=== PATIENT | female | born 1955 | race Caucasian/White ===

== ENCOUNTER 2019-02-19 09:48 | Day surgery (SDC) | payer BC ==
[2019-02-19] VITALS (7 sets, daily range): BP systolic 111–133; BP diastolic 65–76
[~2019-02-19] VITALS: Ht 162.6 cm; Wt 55.8 kg
--- NOTE | 2019-02-19 11:12 | Anethesia Preoperative Eval ---
Anesthesia Pre-op PMH/ROS General Date of Evaluation: Feb 19, 2019 Time of Evaluation: 11:06 Anesthesiologist: Kraig ASA Score: ASA 2 Mallampati Score Class I : Soft palate, uvula, fauces, pillars visible Class II: Soft palate, uvula, fauces visible Class III: Soft palate, base of uvula visible Class IV: Only hard plate visible Mallampati Classification: Class II Surgeon: Analilia Diagnosis: Abdominal pain Surgical Procedure: Colonoscopy Anesthesia History: none Family History: no anesthesia problems Allergies: Coded Allergies: No Known Allergies (Unverified , 02/19/19) Medications: see eMAR Patient NPO?: Yes Past Medical History Cardiovascular: Reports: HTN - stable on meds; Denies: CAD, RI, valve dz, arrhythmia, other Pulmonary: Denies: asthma, COPD, [place], other Gastrointestinal/Genitourinary: Reports: GERD; Denies: CRI, ESRD, other Neurologic/Psychiatric: Denies: dementia, CVA, depression/anxiety, TIA, other Endocrine: Denies: DM, hypothyroidism, steroids, other HEENT: Denies: cataract (L), cataract (R), glaucoma, MINTO (L), MINTO (R), other Hematology/Immune: Denies: anemia, DVT, bleeding disorder, other Musculoskeletal/Integumentary: Denies: OA, RA, DJD, DDD, edema, other PMH Narrative: as above PSxH Narrative: See H&P Anesthesia Pre-op Phys. Exam Physician Exam Last Vital Signs Date Time Temp Pulse Resp B/P (MAP) Pulse Ox O2 Delivery O2 Flow Rate FiO2 02/19/19 10:43 97.2 60 18 125/68 98 Room Air Constitutional: NAD Neurologic: CN 2-12 intact Cardiovascular: RRR, no M/R/G Respiratory: CTA Gastrointestinal: S/NT/ND, other Airway Exam Mallampati Score: Class II MO: full Neck: flexible ROM: full Teeth: intact Dentures: no upper, no lower Anesthesia Pre-op A/P Risk Assessment & Plan Assessment: ASA 2 Plan: MAC Status Change Before Surgery: Fernando Jensen MD Feb 19, 2019 11:12
[2019-02-19] MEDS ORDERED: Midazolam 2mg/2ml Inj ONE (11:26)
[2019-02-19] MEDS ORDERED: fentaNYL 100 mcg/2 mL IV ONE (11:26)
[2019-02-19] MEDS ORDERED: Propofol 200mg/20ml IV ONE (11:26)
[2019-02-19] MEDS ORDERED: AMLODIPINE BESYL5 MG ORAL (11:27)
[2019-02-19] MEDS ORDERED: COREG CR40 MG ORAL (11:29)
[2019-02-19] MEDS ORDERED: BENICAR40 MG ORAL (11:29)
[2019-02-19] MEDS ORDERED: HYDROCHLOROTHIA25 MG ORAL (11:30)
[2019-02-19] MEDS ORDERED: [UNRECOGNIZED DRUG - OTHER] PO (11:31)
[2019-02-19] MEDS ORDERED: VIT D PO (11:31)
[2019-02-19] MEDS ORDERED: DUAVEE 0.45-201 EACH PO (11:32)
--- NOTE | 2019-02-19 11:32 | Pre-Procedure Note/Attestation ---
Pre-Procedure Note/Attestation Complete Prior to Procedure Planned Procedure: not applicable Procedure Narrative: colonoscopy Indications for Procedure Pre-Operative Diagnosis: screening Attestation I attest that I discussed the nature of the procedure; its benefits; risks and complications; and alternatives (and the risks and benefits of such alternatives ), prior to the procedure, with the patient (or the patient's legal commissary representative). I attest that, if there was a reasonable possibility of needing a blood transfusion, the patient (or the patient's legal commissary representative) was given the [facility] standardized written summary, pursuant to the Dave Canones Blood Safety Act ([place] Health and Safety Code # 1645, as amended). I attest that I re-evaluated the patient just prior to the surgery and that there has been no change in the patient's H&P, except as documented below: Mauricio Billingsley MD Feb 19, 2019 11:32
--- NOTE | 2019-02-19 11:34 | Short Stay Surgery H&P ---
History of Present Illness History of Present Illness Chief Complaint screening colon HPI Lela Monae is a 63 year old female who was admitted on for Abdominal Pain Patient History Allergies: Coded Allergies: No Known Allergies (Unverified , 02/19/19) PAST MEDICAL HISTORY: (1) HTN (hypertension) (2) Skin cancer Medication History Scheduled Amlodipine Besylate* (Amlodipine Besylate*), 5 MG ORAL DAILY, (Reported) Carvedilol Phosphate (Coreg Cr), 40 MG ORAL DAILY, (Reported) Estrogens,Conj/Bazedoxifene (Duavee 0.45-20 mg Tablet), 1 EACH PO DAILY, ( Reported) Hydrochlorothiazide* (Hydrochlorothiazide*), 25 MG ORAL DAILY, (Reported) Olmesartan Medoxomil (Benicar), 40 MG ORAL DAILY, (Reported) [VIT D/Concumin], 500 MG PO DAILY, (Reported) Review of Systems Cardiovascular: Reports: no symptoms Respiratory: Reports: no symptoms Skeletal: Reports: no symptoms Gastrointestinal: Reports: no symptoms Genitourinary: Reports: no symptoms Neurologic: Reports: no symptoms Endocrine: Reports: no symptoms Hematologic: Reports: no symptoms Physical Exam Vital Signs Last Vital Signs Date Time Temp Pulse Resp B/P (MAP) Pulse Ox O2 Delivery O2 Flow Rate FiO2 02/19/19 10:43 97.2 60 18 125/68 98 Room Air Skin: normal HENT: normal Heart: normal Lungs: normal Abdomen: normal Extremities: normal Plan Plan of Care colonoscopy Attestation Are the patient's medical conditions optimized for surgery? Attestation Response: yes Mauricio Billingsley MD Feb 19, 2019 11:34
[2019-02-19] MEDS ORDERED: LR 1000ml 1,000 ML IVLG SCH (11:45)
[2019-02-19] MEDS ORDERED: fentaNYL 100 mcg/2 mL IV PRN (11:45)
--- NOTE | 2019-02-19 11:54 | Endoscopy Procedure Note ---
Endoscopy Procedure Note General Indication for Procedure: screening Procedures Performed: colonoscopy Operative Findings/Diagnosis: one polyp Specimen: yes Pt Tolerated Procedure Well: Yes Estimated Blood Loss: none Anesthesia Anesthesiologist: rafaela Anesthesia: MAC Inserted Devices Implant(s) used?: No Quality Quality of Bowel Preparation: Good Did scope reach the cecum?: Yes Was there any complications?: No GI Core Measures 50 yrs or older w/o bx or poly: No 10yrs. F/U not recommended: Yes If not recommended, why?: Above average risk 10 yrs. F/U needed: Yes 18 years or older w/prev. colo: Yes <3yrs. since last colonoscopy: No Mauricio Billingsley MD Feb 19, 2019 11:54
--- NOTE | 2019-02-19 12:04 | Immediate Post-Op Evaluation ---
Immediate Post-Op Evalulation Immediate Post-Op Evalulation Procedure: Colonoscopy Date of Evaluation: Feb 19, 2019 Time of Evaluation: 12:03 IV Fluids: 500 Blood Products: none Estimated Blood Loss: none Urinary Output: none Blood Pressure Systolic: 112 Blood Pressure Diastolic: 56 Pulse Rate: 58 Respiratory Rate: 20 O2 Sat by Pulse Oximetry: 99 Temperature (Fahrenheit): 97.8 Pain Score (1-10): 1 Nausea: No Vomiting: No Complications none Patient Status: awake, patent, none Hydration Status: adequate Fernando Cornell MD Feb 19, 2019 12:04
[2019-02-19] MEDS ORDERED: RANITIDINE HCL150 MG ORAL (18:23)
--- NOTE | 2019-02-19 19:15 | Procedure Note ---
DATE OF PROCEDURE: 02/19/2019 SURGEON: Mauricio Billingsley M.D. ANESTHESIA: Per Dr. Cornell. PROCEDURE: Colonoscopy. REASON FOR PROCEDURE: The procedure, risks, benefits, and possible consequences, including hemorrhage, aspiration, perforation and infection, and alternative treatments, were explained to the patient/legal guardian by Dr. Mauricio Billingsley and the patient/legal guardian understood and accepted these risks. INDICATIONS: Screening colonoscopy. INSTRUMENT: Olympus adult flexible colonoscope. DESCRIPTION OF PROCEDURE: After informed consent was obtained and the patient was adequately sedated, first rectal exam was performed, which was positive for internal hemorrhoids. Then, the scope was advanced from rectum into the cecum documented by appendiceal orifice, ileocecal valve, and right upper quadrant palpation. Quality of prep was very good. The patient had 1 colonic polyp in the sigmoid measured roughly about 4 mm removed with cold biopsy forceps technique. Otherwise, the rest of the colonoscopic examination was within normal limits. Retroflexion of rectum showed evidence of few medium-sized nonbleeding internal hemorrhoids. SUMMARY OF FINDINGS: 1. One colonic polyp removed, see above for details. 2. Internal hemorrhoids. RECOMMENDATIONS: 1. Follow up pathology. 2. Repeat colonoscopy in 5 years. Mauricio Billingsley M.D. DR: NAA JOB#: [id number] CC:
== END 2019-02-19 13:00 | disposition home or self-care (01) ==
LOC: GAS 09:48
DX: Z12.11 Encounter for screening for malignant neoplasm of colon (principal); K63.5 Polyp of colon; K64.8 Other hemorrhoids; I10 Essential (primary) hypertension; Z85.828 Personal history of other malignant neoplasm of skin; D12.5 Benign neoplasm of sigmoid colon
CPT/HCPCS: 45380; J2250; J2704; J3010; 94003; 94150

== ENCOUNTER 2019-02-19 15:13 | Emergency (ER) | payer BC ==
[~2019-02-19] VITALS: Ht 162.6 cm; Wt 55.8 kg
[~2019-02-19 15:13] MED LIST: AMLODIPINE BESYL5 MG ORAL; BENICAR40 MG ORAL; COREG CR40 MG ORAL; DUAVEE 0.45-201 EACH PO; HYDROCHLOROTHIA25 MG ORAL; VIT D PO; [UNRECOGNIZED DRUG - OTHER] PO
--- NOTE | 2019-02-19 15:22 | NUR ---
ED Nurse Note: Patient walked in to ED. Patient reports that she had colonoscopy today around [address] Billingsley. On the way home, patient had epigastric pain, similar to the one that she had when she had small bowel obstruction [address] Billingsley told them to come to ED for check up. patient also c/o nausea.
[2019-02-19] MEDS ORDERED: Morphine Sulfate 4mg/ml Inj (IV USE ONLY) IVP ONE ×2 (15:45→18:30)
[2019-02-19] MEDS ORDERED: Isovue-300 100ml vial INJ PRN (16:00)
[2019-02-19 16:13] LABS: APPEARANCE,URINE CLEAR; BILIRUBIN, URINE NEGATIVE (NEGATIVE); COLOR,URINE PALE YELLOW; GLUCOSE, URINE (UA) NEGATIVE (NEGATIVE); KETONES,URINE 2+ (NEGATIVE); LEUKOCYTE ESTERASE ,URINE NEGATIVE (NEGATIVE); NITRITE,URINE NEGATIVE (NEGATIVE); PH,URINE 7 (4.5-8.0); PROTEIN,URINE NEGATIVE (NEGATIVE); UROBILINOGEN,URINE NORMAL MG/DL (0.0-1.0)
[2019-02-19 16:19] LABS: BASOPHILS % (AUTO) 0.3 % (0.0-2.0); EOSINOPHILS % (AUTO) 0.2 % (0.0-3.0); MEAN CORPUSCULAR VOLUME 84 FL (80-99); MONOCYTES % (AUTO) 4.3 % (1.0-10.0); NEUTROPHILS % (AUTO) 81.2 % (45.0-75.0); PLATELET COUNT 210 K/UL (150-450); RED BLOOD COUNT 4.75 M/UL (4.20-5.40); RED CELL DISTRIBUTION WIDTH 16.4 % (11.6-14.8); WHITE BLOOD COUNT 7.1 K/UL (4.8-10.8)
[2019-02-19 16:29] LABS: INR 1.1 (0.9-1.1)
[2019-02-19 16:36] LABS: ANION GAP 15 mmol/L (5-15); BLOOD UREA NITROGEN 13 mg/dL (7-18); CALCIUM 9.4 MG/DL (8.5-10.1); CARBON DIOXIDE 26 MMOL/L (21-32); CHLORIDE 104 MMOL/L (98-107); CREATININE 0.7 MG/DL (0.55-1.30); POTASSIUM 2.9 MMOL/L (3.5-5.1); SODIUM 145 MMOL/L (136-145)
[2019-02-19 16:40] LABS: ALANINE AMINOTRANSFERASE 27 U/L (12-78); ALBUMIN/GLOBULIN RATIO 1.1 (1.0-2.7); ALKALINE PHOSPHATASE 43 U/L (46-116); ASPARTATE AMINO TRANSFERASE 27 U/L (15-37); BILIRUBIN,TOTAL 0.4 MG/DL (0.2-1.0)
--- NOTE | 2019-02-19 17:45 | NUR ---
ED Nurse Note: patient came back from CT awaiting for result patient stable in bed, comfortably resting in bed
[2019-02-19 17:50] VITALS: BP 145/85
--- NOTE | 2019-02-19 17:54 | Diagnostic Imaging Report ---
Clinical Indication: Abdominal pain, status post colonoscopy, nausea Technique: No oral contrast utilized, per emergency room physician request IV administration nonionic contrast. Venous phase spiral acquisition obtained through the abdomen and pelvis. Multiplanar reconstructions were generated. Total dose length product 607.77 mGycm. CTDIvol(s) 12.77 mGy. Dose reduction achieved using automated exposure control Comparison: none Findings: The appendix is normal. There are a few colonic diverticula. No evidence of diverticulitis. No small bowel distention. No free or loculated intraperitoneal gas or fluid. There is generalized nonspecific haziness of the mesenteric root and pelvic fat. No free intraperitoneal gas is evident. There is trace free fluid adjacent to the tip of the right hepatic lobe. The liver, gallbladder, bile ducts, pancreas, spleen, adrenals are unremarkable. The kidneys demonstrate subcentimeter low-attenuation lesions which are too small to characterize. A punctate calcification is seen in a left lower pole calyx. No ureteral calculi, hydronephrosis, or hydroureter demonstrated. The bladder is unremarkable. The uterus and adnexal structures are unremarkable. The included lung bases demonstrate minimal dependent atelectatic changes. There are mild degenerative changes of the lumbar spine noted. Impression: No evidence of bowel perforation or other significant post colonoscopy complication Trace free intraperitoneal fluid adjacent to the tip of the right hepatic lobe. Nonspecific slight increased attenuation of the mesenteric fat, significance/etiology uncertain. Nonobstructive punctate left intrarenal calculus Bilateral renal subcentimeter low-attenuation lesions, too small to characterize, most likely benign simple cortical cysts. No further follow-up necessary. Minimal degenerative spondylosis change Findings discussed by phone with Dr. Bazan in the emergency room at the time of interpretation The CT scanner at [facility] is accredited by the [employer] and the scans are performed using protocols designed to limit radiation exposure to as low as reasonably achievable to attain images of sufficient resolution adequate for diagnostic evaluation.
[2019-02-19] MEDS ORDERED: RANITIDINE HCL150 MG ORAL (18:23)
--- NOTE | 2019-02-19 18:35 | NUR ---
ED Nurse Note: verified with Dr. Leon that additional dose of pepcid does not need to be given.
--- NOTE | 2019-02-19 18:36 | NUR ---
ED Nurse Note: Dr. Leon ok to discharge the patient after giving morphine 4mg dose by the bedside he is going to drive. Patient stated she won't drive. she understands of be safe patient states she is a retired nurse.
[2019-02-19 18:50] VITALS: BP 145/85
--- NOTE | 2019-02-19 18:50 | NUR ---
ER DISCHARGE NOTE: Patient is cleared to be discharged per ERMD, pt is aox4, on room air, with stable vital signs. pt was given dc and prescription instructions, pt was able to verbalize understanding, pt id band and iv site removed without complications. pt is able to ambulate with steady gait. pt took all belongings.
--- NOTE | 2019-02-19 22:45 | Emergency Room Report ---
History of Present Illness General Chief Complaint: Abdominal Pain Source: Patient Present Illness HPI 63-year-old female presents ED for evaluation. Patient complaining of epigastric pain which started today. Sharp, 8 out of 10, nonradiating. Denies nausea or vomiting. States symptoms started shortly after having colonoscopy today. Performed by Dr. Billingsley referred patient to ED. Patient has history of bowel obstruction. Denies nausea or vomiting. States she is passing flatus. Denies fevers or chills. No other aggravating relieving factors. Denies any other associated symptoms Allergies: Coded Allergies: No Known Allergies (Unverified , 02/19/19) Patient History Past Medical History: HTN Past Surgical History: other - SBO Pertinent Family History: none Social History: Denies: smoking, alcohol use, drug use Now: No Immunizations: UTD Reviewed Nursing Documentation: PMH: Agreed; PSxH: Agreed Nursing Documentation-PMH Past Medical History: No History, Except For Hx Hypertension: Yes Hx Cancer: Yes - skin cancer Hx Gastrointestinal Problems: Yes Hx Neurological Problems: No Review of Systems All Other Systems: negative except mentioned in HPI Physical Exam Vital Signs Date Time Temp Pulse Resp B/P (MAP) Pulse Ox O2 Delivery O2 Flow Rate FiO2 02/19/19 15:17 98.1 61 14 122/71 94 Room Air Sp02 EP Interpretation: reviewed, normal General Appearance: no apparent distress, alert, GCS 15, non-toxic Head: normocephalic, atraumatic Eyes: bilateral eye normal inspection, bilateral eye PERRL ENT: hearing grossly normal, normal pharynx, no angioedema, normal voice Neck: full range of motion, supple/symm/no masses Respiratory: chest non-tender, lungs clear, normal breath sounds, speaking full sentences Cardiovascular #1: regular rate, rhythm, no edema Cardiovascular #2: 2+ carotid (R), 2+ carotid (L), 2+ radial (R), 2+ radial (L) , 2+ dorsalis pedis (R), 2+ dorsalis pedis (L) Gastrointestinal: normal bowel sounds, soft, non-distended, no guarding, no rebound, tenderness - epigastric Rectal: deferred Genitourinary: normal inspection, no CVA tenderness Musculoskeletal: back normal, gait/station normal, normal range of motion, non- tender Neurologic: alert, oriented x3, responsive, motor strength/tone normal, sensory intact, speech normal Psychiatric: judgement/insight normal, memory normal, mood/affect normal, no suicidal/homicidal ideation Reflexes: 3+ bicep (R), 3+ bicep (L), 3+ tricep (R), 3+ tricep (L), 3+ knee (R) , 3+ knee (L) Skin: normal color, no rash, warm/dry, well hydrated Lymphatic: no adenopathy Medical Decision Making Diagnostic Impression: Primary Impression: Abdominal pain Qualified Codes: R10.13 - Epigastric pain ER Course Hospital Course 63-year-old female presents ED with abdominal pain status post colonoscopy Differential diagnosis includes- bowel perforation, small bowel obstruction, gastritis, Clinical course Patient placed on stretcher. After initial history and physical I ordered labs , IV fluids, pain medications and CT scan Labs - no leukocytosis, K 2.9, LFTs normal CT scan shows no evidence of bowel perforation or small bowel obstruction. Otherwise incidental findings noted on final report K repleted On reassessment pain improved. Discussed findings with patient and with Dr. Billingsley. Safe for discharge or close outpatient follow-up I feel this is a highly complex case requiring extensive working including EKG/ Rhythm strip, Xray/CT/US, Blood/urine lab work, repeat exams while in ED, and administration of strong opiates/narcotics for pain control, admission to hospital or close patient follow up. Diagnosis - abdominal pain Stable and discharged to home. Followup with PMD/GI. Return to ED if symptoms recur or worsen Labs Test 02/19/19 15:36 02/19/19 15:53 Urine Color Pale yellow Urine Appearance Clear Urine pH 7 (4.5-8.0) Urine Specific [place] 1.010 (1.005-1.035) Urine Protein Negative (NEGATIVE) Urine Glucose (UA) Negative (NEGATIVE) Urine Ketones 2+ (NEGATIVE) Urine Blood Negative (NEGATIVE) Urine Nitrite Negative (NEGATIVE) Urine Bilirubin Negative (NEGATIVE) Urine Urobilinogen Normal MG/DL (0.0-1.0) Urine Leukocyte Esterase Negative (NEGATIVE) White Blood Count 7.1 K/UL (4.8-10.8) Red Blood Count 4.75 M/UL (4.20-5.40) Hemoglobin 13.0 G/DL (12.0-16.0) Hematocrit 40.0 % (37.0-47.0) Mean Corpuscular Volume 84 FL (80-99) Mean Corpuscular Hemoglobin 27.4 PG (27.0-31.0) Mean Corpuscular Hemoglobin Concent 32.6 G/DL (32.0-36.0) Red Cell Distribution Width 16.4 % (11.6-14.8) Platelet Count 210 K/UL (150-450) Mean Platelet Volume 8.0 FL (6.5-10.1) Neutrophils (%) (Auto) 81.2 % (45.0-75.0) Lymphocytes (%) (Auto) 14.0 % (20.0-45.0) Monocytes (%) (Auto) 4.3 % (1.0-10.0) Eosinophils (%) (Auto) 0.2 % (0.0-3.0) Basophils (%) (Auto) 0.3 % (0.0-2.0) Prothrombin Time 11.5 SEC (9.30-11.50) Prothromb Time International Ratio 1.1 (0.9-1.1) Activated Partial Thromboplast Time 27 SEC (23-33) Sodium Level 145 MMOL/L (136-145) Potassium Level 2.9 MMOL/L (3.5-5.1) Chloride Level 104 MMOL/L (98-107) Carbon Dioxide Level 26 MMOL/L (21-32) Anion Gap 15 mmol/L (5-15) Blood Urea Nitrogen 13 mg/dL (7-18) Creatinine 0.7 MG/DL (0.55-1.30) Estimat Glomerular Filtration Rate > 60 mL/min (>60) Glucose Level 110 MG/DL (74-106) Calcium Level 9.4 MG/DL (8.5-10.1) Total Bilirubin 0.4 MG/DL (0.2-1.0) Aspartate Amino Transf (AST/SGOT) 27 U/L (15-37) Alanine Aminotransferase (ALT/SGPT) 27 U/L (12-78) Alkaline Phosphatase 43 U/L (46-116) Total Protein 7.5 G/DL (6.4-8.2) Albumin 4.0 G/DL (3.4-5.0) Globulin 3.5 g/dL Albumin/Globulin Ratio 1.1 (1.0-2.7) Lipase 96 U/L (73-393) CT/MRI/US Diagnostic Results CT/MRI/US Diagnostic Results : Imaging Test Ordered: CT A/P Impression No evidence of bowel perforation or other significant post colonoscopy complication Trace free intraperitoneal fluid adjacent to the tip of the right hepatic lobe. Nonspecific slight increased attenuation of the mesenteric fat, significance/ etiology uncertain. Nonobstructive punctate left intrarenal calculus Bilateral renal subcentimeter low-attenuation lesions, too small to characterize , most likely benign simple cortical cysts. No further follow-up necessary. Last Vital Signs Date Time Temp Pulse Resp B/P (MAP) Pulse Ox O2 Delivery O2 Flow Rate FiO2 02/19/19 18:50 98.0 63 13 145/85 99 Room Air Status: improved Disposition: HOME, SELF-CARE Condition: Stable Scripts Ranitidine Hcl* (ZANTAC*) 150 Mg Tablet 150 MG ORAL TWICE A DAY, #30 TAB Prov: Angel Bazan MD 02/19/19 Referrals: NON PHYSICIAN (PCP) Mauricio Billingsley MD Patient Instructions: Abdominal Pain, Adult Angel Bazan MD Feb 19, 2019 22:45
== END 2019-02-19 18:50 | disposition home or self-care (01) ==
LOC: EMR 16:05
DX: R10.13 Epigastric pain (principal); I10 Essential (primary) hypertension; N20.0 Calculus of kidney; Z85.828 Personal history of other malignant neoplasm of skin
CPT/HCPCS: 36415; 74177; 80053; 81003; 83690; 85025; 85610; 85730; 96374; 96375; 96376; 99284; J2270; Q9967; S0028; J8499